=== PATIENT | male | born 1975 | race Caucasian/White ===

== ENCOUNTER 2017-03-07 04:21 | Inpatient (IN) | payer SELFPAY ==
[~2017-03-07] VITALS: Ht 177.8 cm; Wt 117.6 kg
[~2017-03-07 04:21] MED LIST: HYDR-3240 PO; LISI-167 PO; METO25TA35 PO
[2017-03-07] MEDS ORDERED: LABETALOL 5MG/ML, 20ML ONE (04:37)
[2017-03-07] MEDS: LABETALOL 5MG/ML, 20ML IVPush PRN ×3 (04:44→05:30)
[2017-03-07] MEDS ORDERED: ONDANSETRON 2MG/ML, 2ML ONE ×2 (05:11→08:13)
[2017-03-07] MEDS ORDERED: SODIUM CHLORIDE 0.9% 1,000 ML IV ONE (05:18)
[2017-03-07] MEDS ORDERED: niCARDipine 50 MG in DEXTROSE 5% 500 ML IV PRN ×2 (05:18→05:26)
[2017-03-07] MEDS ORDERED: AMLO10TA2 PO (05:19)
[2017-03-07] MEDS ORDERED: HYDR25TA6 PO (05:19)
[2017-03-07] MEDS ORDERED: NICARDIPINE IV PRN (05:26)
[2017-03-07] MEDS ORDERED: DEXTROSE 5% IV PRN (05:26)
[2017-03-07 05:45] LABS: BLOOD UREA NITROGEN 18 mg/dL (7-18)
[2017-03-07 05:56] LABS: ASPARTATE AMINO TRANSFERASE 40 U/L (15-37)
[2017-03-07] MEDS ORDERED: ONDANSETRON 2MG/ML, 2ML IVPush ONE ×2 (06:00→08:30)
[2017-03-07 06:19] LABS: IS PT STATUS REG ER OR PRE ER? YES
[2017-03-07] MEDS ORDERED: OMNIPAQUE 350 MG/ML, 100ML BOTTLE ONE (06:28)
[2017-03-07 06:36] LABS: DAU SCREEN DISCLAIMER
[2017-03-07] MEDS: SODIUM CHLORIDE 0.9% 1,000 ML IV SCH ×2 (10:13→19:29)
[2017-03-07] MEDS ORDERED: POLYETHYLENE GLYCOL 17 GM PACKET PO PRN (10:30)
[2017-03-07] MEDS ORDERED: ONDANSETRON 2MG/ML, 2ML IVPush PRN (10:30)
[2017-03-07] MEDS ORDERED: LORazepam 2 MG/ML, 1ML IVPush PRN (10:30)
[2017-03-07] MEDS ORDERED: morphine SULFATE 10 MG/ML, 1ML IVPush PRN (10:30)
[2017-03-07 10:53] LABS: IS PT STATUS REG ER OR PRE ER? YES
[2017-03-07 11:43] LABS: HIV 1&2 ANTIBODY SCREEN Nonreactive (Nonreactive); HIV-1 p24 ANTIGEN Nonreactive (Nonreactive)
[2017-03-07] MEDS ORDERED: GADOBUTROL 10 MMOL/10 ML PFS ONE (14:30)
[2017-03-07] MEDS: HYDROCHLOROTHIAZIDE 25 MG TABLET PO SCH (15:46)
[2017-03-07] MEDS: LISINOPRIL 20 MG TABLET PO SCH ×2 (16:40→21:30)
[2017-03-07] MEDS: AMLODIPINE 5 MG TABLET PO SCH (16:42)
[2017-03-07 17:07] LABS: IS PT STATUS REG ER OR PRE ER? NO
[2017-03-07 18:36] VITALS: BP 138/74
[2017-03-07] MEDS ORDERED: DIPHENHYDRAMINE 50 MG/ML, 1ML ONE (20:42)
[2017-03-07] MEDS: FAMOTIDINE 20 MG TABLET PO SCH (21:29)
[2017-03-07 22:35] VITALS: BP 213/158
[2017-03-08 04:04] VITALS: BP 134/67
[2017-03-08 04:43] LABS: BLOOD UREA NITROGEN 16 mg/dL (7-18)
[2017-03-08 04:47] LABS: ASPARTATE AMINO TRANSFERASE 26 U/L (15-37)
[2017-03-08] MEDS: SODIUM CHLORIDE 0.9% 1,000 ML IV SCH ×2 (05:03→16:25)
[2017-03-08] MEDS: OXYcodone IR 5MG TABLET PO PRN ×2 (05:04→20:10)
[2017-03-08] MEDS: LISINOPRIL 20 MG TABLET PO SCH ×2 (09:38→20:09)
[2017-03-08] MEDS: AMLODIPINE 5 MG TABLET PO SCH (09:39)
[2017-03-08] MEDS: SENNA/DOCUSATE TABLET PO SCH (09:39)
[2017-03-08] MEDS: FAMOTIDINE 20 MG TABLET PO SCH ×2 (09:39→20:09)
[2017-03-08] MEDS: HYDROCHLOROTHIAZIDE 25 MG TABLET PO SCH (09:39)
[2017-03-08 14:07] LABS: HEPATITIS C VIRUS ANTIBODY Nonreactive (Nonreactive)
[2017-03-08] MEDS: ENALAPRILAT 1.25 MG/ML, 2ML IVPush PRN (21:57)
[2017-03-09] MEDS: hydrALAzine 20 MG/ML, 1ML IV PRN ×3 (00:09→23:32)
[2017-03-09] MEDS: OXYcodone IR 5MG TABLET PO PRN (01:11)
[2017-03-09] MEDS: ENALAPRILAT 1.25 MG/ML, 2ML IVPush PRN (01:12)
[2017-03-09] MEDS: SODIUM CHLORIDE 0.9% 1,000 ML IV SCH ×2 (01:13→11:00)
[2017-03-09 04:00] VITALS: BP 132/62
[2017-03-09 04:33] LABS: BLOOD UREA NITROGEN 18 mg/dL (7-18)
[2017-03-09 04:36] LABS: ASPARTATE AMINO TRANSFERASE 31 U/L (15-37)
[2017-03-09] MEDS: LISINOPRIL 20 MG TABLET PO SCH ×2 (07:26→23:19)
[2017-03-09] MEDS: AMLODIPINE 5 MG TABLET PO SCH (07:26)
[2017-03-09] MEDS: HYDROCHLOROTHIAZIDE 25 MG TABLET PO SCH (07:27)
[2017-03-09] MEDS: SENNA/DOCUSATE TABLET PO SCH (07:27)
[2017-03-09] MEDS: FAMOTIDINE 20 MG TABLET PO SCH ×2 (07:27→23:19)
[2017-03-09] MEDS: VERAPAMIL ER 120MG TABLET.ER PO SCH (15:29)
[2017-03-09] MEDS: ACETAMINOPHEN 325 MG TABLET PO PRN ×2 (17:11→23:47)
[2017-03-10] MEDS: ENALAPRILAT 1.25 MG/ML, 2ML IVPush PRN ×3 (00:21→05:23)
[2017-03-10] MEDS: hydrALAzine 20 MG/ML, 1ML IV PRN ×2 (02:07→03:33)
[2017-03-10 06:08] LABS: ASPARTATE AMINO TRANSFERASE 30 U/L (15-37); BLOOD UREA NITROGEN 27 mg/dL (7-18)
[2017-03-10] MEDS: AMLODIPINE 5 MG TABLET PO SCH (08:20)
[2017-03-10] MEDS: HYDROCHLOROTHIAZIDE 25 MG TABLET PO SCH (08:20)
[2017-03-10] MEDS: VERAPAMIL ER 120MG TABLET.ER PO SCH (08:20)
[2017-03-10] MEDS: FAMOTIDINE 20 MG TABLET PO SCH ×2 (08:21→22:35)
[2017-03-10] MEDS: SENNA/DOCUSATE TABLET PO SCH (08:21)
[2017-03-10] MEDS: LISINOPRIL 20 MG TABLET PO SCH ×2 (08:21→22:35)
[2017-03-10] MEDS ORDERED: VERAPAMIL ER 120MG TABLET.ER PO ONE (10:00)
[2017-03-10] MEDS ORDERED: FUROSEMIDE 20 MG/2 ML IV ONE (12:30)
[2017-03-10] MEDS: ACETAMINOPHEN 325 MG TABLET PO PRN (14:05)
[2017-03-11] MEDS: hydrALAzine 20 MG/ML, 1ML IV PRN ×2 (03:07→05:10)
[2017-03-11] MEDS: ENALAPRILAT 1.25 MG/ML, 2ML IVPush PRN (04:03)
[2017-03-11 06:12] LABS: BLOOD UREA NITROGEN 25 mg/dL (7-18)
[2017-03-11] MEDS: AMLODIPINE 5 MG TABLET PO SCH (09:18)
[2017-03-11] MEDS: HYDROCHLOROTHIAZIDE 25 MG TABLET PO SCH (09:19)
[2017-03-11] MEDS: LISINOPRIL 20 MG TABLET PO SCH ×2 (09:19→20:49)
[2017-03-11] MEDS: FAMOTIDINE 20 MG TABLET PO SCH ×2 (09:19→20:48)
[2017-03-11] MEDS: VERAPAMIL ER 240MG TABLET.ER PO SCH (09:19)
[2017-03-11] MEDS: SENNA/DOCUSATE TABLET PO SCH (09:19)
[2017-03-11] MEDS ORDERED: POTASSIUM CHLORIDE 20 MEQ TAB.ER.PRT PO ONE (10:00)
[2017-03-11] MEDS ORDERED: FUROSEMIDE 20 MG/2 ML IV ONE (10:00)
[2017-03-11] MEDS: TEMAZEPAM 15 MG CAPSULE PO PRN (20:50)
[2017-03-11] MEDS: OXYcodone IR 5MG TABLET PO PRN (20:50)
[2017-03-11 20:51] VITALS: BP 147/90
[2017-03-12 02:13] VITALS: BP 140/67
[2017-03-12 05:52] LABS: ASPARTATE AMINO TRANSFERASE 86 U/L (15-37); BLOOD UREA NITROGEN 19 mg/dL (7-18)
[2017-03-12 08:09] VITALS: BP 153/96
[2017-03-12] MEDS: HYDROCHLOROTHIAZIDE 25 MG TABLET PO SCH (08:11)
[2017-03-12] MEDS: VERAPAMIL ER 240MG TABLET.ER PO SCH (08:11)
[2017-03-12] MEDS: AMLODIPINE 5 MG TABLET PO SCH (08:11)
[2017-03-12] MEDS: SENNA/DOCUSATE TABLET PO SCH (08:11)
[2017-03-12] MEDS: LISINOPRIL 20 MG TABLET PO SCH ×2 (08:11→19:57)
[2017-03-12] MEDS: FAMOTIDINE 20 MG TABLET PO SCH ×2 (08:11→19:57)
[2017-03-12 09:30] VITALS: BP 139/79
[2017-03-12 13:06] VITALS: BP 146/74
[2017-03-12 13:29] VITALS: BP 132/82
[2017-03-12] MEDS: OXYcodone IR 5MG TABLET PO PRN (20:02)
[2017-03-12] MEDS: TEMAZEPAM 15 MG CAPSULE PO PRN (20:02)
[2017-03-13] MEDS: hydrALAzine 20 MG/ML, 1ML IV PRN ×2 (01:23→14:30)
[2017-03-13] MEDS: OXYcodone IR 5MG TABLET PO PRN ×2 (01:23→21:03)
[2017-03-13 03:43] VITALS: BP 121/74
[2017-03-13 05:39] LABS: BLOOD UREA NITROGEN 19 mg/dL (7-18)
[2017-03-13 05:45] LABS: ASPARTATE AMINO TRANSFERASE 96 U/L (15-37)
[2017-03-13 06:54] VITALS: BP 162/94
[2017-03-13 07:35] VITALS: BP 148/85
[2017-03-13] MEDS: VERAPAMIL ER 180MG TABLET.ER PO SCH (08:41)
[2017-03-13] MEDS: HYDROCHLOROTHIAZIDE 25 MG TABLET PO SCH (08:41)
[2017-03-13] MEDS: FAMOTIDINE 20 MG TABLET PO SCH ×2 (08:42→21:03)
[2017-03-13] MEDS: SENNA/DOCUSATE TABLET PO SCH (08:46)
[2017-03-13] MEDS: LISINOPRIL 20 MG TABLET PO SCH ×2 (08:46→21:03)
[2017-03-13] MEDS: AMLODIPINE 5 MG TABLET PO SCH (08:46)
[2017-03-13 13:00] VITALS: BP 118/77
[2017-03-13 13:28] VITALS: BP 149/74
[2017-03-13] MEDS: TEMAZEPAM 15 MG CAPSULE PO PRN (21:03)
[2017-03-13 21:04] VITALS: BP 136/83
[2017-03-14 01:52] VITALS: BP 132/82
[2017-03-14 08:25] VITALS: BP 123/83
[2017-03-14] MEDS: AMLODIPINE 5 MG TABLET PO SCH (09:06)
[2017-03-14] MEDS: FAMOTIDINE 20 MG TABLET PO SCH ×2 (09:06→21:13)
[2017-03-14] MEDS: SENNA/DOCUSATE TABLET PO SCH (09:06)
[2017-03-14] MEDS: VERAPAMIL ER 180MG TABLET.ER PO SCH (09:07)
[2017-03-14] MEDS: LISINOPRIL 20 MG TABLET PO SCH ×2 (09:07→21:13)
[2017-03-14] MEDS: HYDROCHLOROTHIAZIDE 25 MG TABLET PO SCH (09:07)
[2017-03-14 16:42] VITALS: BP 101/66
[2017-03-14] MEDS: OXYcodone IR 5MG TABLET PO PRN (19:01)
[2017-03-14 21:05] VITALS: BP 98/64
[2017-03-15] MEDS: OXYcodone IR 5MG TABLET PO PRN ×2 (00:15→22:36)
[2017-03-15 02:44] VITALS: BP 127/73
[2017-03-15 06:26] LABS: ASPARTATE AMINO TRANSFERASE 55 U/L (15-37); BLOOD UREA NITROGEN 25 mg/dL (7-18)
[2017-03-15 07:44] VITALS: BP 135/73
[2017-03-15] MEDS: FAMOTIDINE 20 MG TABLET PO SCH ×2 (07:46→22:36)
[2017-03-15] MEDS: SENNA/DOCUSATE TABLET PO SCH (07:46)
[2017-03-15] MEDS: HYDROCHLOROTHIAZIDE 25 MG TABLET PO SCH (07:46)
[2017-03-15] MEDS: VERAPAMIL ER 180MG TABLET.ER PO SCH (07:47)
[2017-03-15] MEDS: LISINOPRIL 20 MG TABLET PO SCH ×2 (07:47→22:36)
[2017-03-15] MEDS: AMLODIPINE 5 MG TABLET PO SCH (07:47)
[2017-03-15] MEDS ORDERED: REGADENOSON 0.4 MG/5 ML SYRINGE ONE (08:15)
[2017-03-15 14:04] VITALS: BP 133/85
[2017-03-15] MEDS: METOPROLOL TARTRATE 25 MG TABLET PO SCH (17:34)
[2017-03-15 17:35] VITALS: BP 121/81
[2017-03-15 22:00] VITALS: BP 133/85
[2017-03-16 03:00] VITALS: BP 123/85
[2017-03-16 06:01] VITALS: BP 134/94
[2017-03-16] MEDS: METOPROLOL TARTRATE 25 MG TABLET PO SCH (06:02)
[2017-03-16 08:02] VITALS: BP 101/66
[2017-03-16] MEDS: SENNA/DOCUSATE TABLET PO SCH (09:00)
[2017-03-16] MEDS ORDERED: VERAPAMIL ER 180MG TABLET.ER PO SCH (09:00)
[2017-03-16] MEDS: OXYcodone IR 5MG TABLET PO PRN (09:21)
[2017-03-16] MEDS: LISINOPRIL 20 MG TABLET PO SCH (09:22)
[2017-03-16] MEDS: AMLODIPINE 5 MG TABLET PO SCH (09:22)
[2017-03-16] MEDS: HYDROCHLOROTHIAZIDE 25 MG TABLET PO SCH (09:22)
[2017-03-16] MEDS: FAMOTIDINE 20 MG TABLET PO SCH (09:22)
[2017-03-16] MEDS ORDERED: LISI-170 PO (12:46)
[2017-03-16] MEDS ORDERED: METO50TA82 PO (12:46)
[2017-03-16] MEDS ORDERED: METOPROLOL TARTRATE 50 MG TABLET PO SCH (18:00)
== END 2017-03-16 14:53 | disposition home or self-care (01) | DRG 65 ==
LOC: ED 06:21 → EDIP 06:22 → ED 06:37 → CCU 12:43 → 5SO 03-12 02:17 → DCLOUNGE 03-16 14:35
PROVIDERS: ADMIT Internal Medicine; ATTEND Internal Medicine
DX: I61.4 Nontraumatic intracerebral hemorrhage in cerebellum (principal); E87.1 Hypo-osmolality and hyponatremia; I10 Essential (primary) hypertension; F15.90 Other stimulant use, unspecified, uncomplicated; I51.9 Heart disease, unspecified; R73.9 Hyperglycemia, unspecified; G35 Multiple sclerosis; D72.829 Elevated white blood cell count, unspecified; R27.0 Ataxia, unspecified; Z82.49 Family history of ischemic heart disease and other diseases of the circulatory system; Z87.891 Personal history of nicotine dependence; Z79.899 Other long term (current) drug therapy; Z71.51 Drug abuse counseling and surveillance of drug abuser
CPT/HCPCS: 36415; 70450; 70496; 70553; 71010; 78452; 80048; 80053; 80061; 80074; 80307; 81001; 83735; 84443; 84484; 85025; 85610; 85730; 86703; 87081; 87086; 87899; 93005; 93017; 93306; 96365; 96366; 96375; 96376; A9585; J2405; J2785; Q9967; A9502; C9898; G0435; J0360; J1940; J2270; J7030; J7040; J7050; J7060

== ENCOUNTER 2018-12-14 21:24 | Emergency (ER) | payer MEDICAID, OTHER ==
[~2018-12-14] VITALS: Ht 175.3 cm; Wt 115.9 kg
[~2018-12-14 21:24] MED LIST changes: +AMLO10TA8 PO; +HYDR25TA6 PO; +LISI-170 PO; +METO50TA82 PO
[2018-12-14 21:26] VITALS: BP 176/128
--- NOTE | 2018-12-14 21:38 | NUR ---
PT RAN OUT OF MEDS FOR BP TODAY. WOULD LIKE MED REFILL. MD GAN TO TRIAGE. PT DENIES CP, SOB, HARGROVE AND ANY NEURO SYMPTOMS. VSS. ELEVATED BP BUT HAS HX OF ELEVATION.
--- NOTE | 2018-12-14 21:58 | NUR ---
Patient/Caregiver given discharge instructions and they have confirmed that they understand the instructions. Patient ambulatory with steady gait.
== END 2018-12-14 22:00 | disposition home or self-care (01) ==
LOC: ED 21:54
DX: I10 Essential (primary) hypertension (principal); Z76.0 Encounter for issue of repeat prescription; Z87.891 Personal history of nicotine dependence
CPT/HCPCS: 93005; 99283

== ENCOUNTER 2020-09-02 19:02 | Emergency (ER) | payer BC, OTHER ==
[~2020-09-02] VITALS: Ht 177.8 cm; Wt 118.3 kg
[~2020-09-02 19:02] MED LIST changes: +AMLO-211 PO; -AMLO10TA8 PO
[2020-09-02 19:42] LABS: BASOPHILS % (AUTO) 0 % (0-1); EOSINOPHILS % (AUTO) 2 % (1-7); LYMPHOCYTES % (AUTO) 28 % (22-44); MEAN CORPUSCULAR HEMOGLOBIN 30.6 pg (27.5-34.5); MEAN CORPUSCULAR HGB CONC 33.6 g/dL (33.2-36.2); MEAN PLATELET VOLUME 7.8 fL (7.4-10.4); MONOCYTES % (AUTO) 8 % (2-9); NEUTROPHILS % (AUTO) 62 % (42-75); PLATELET COUNT 286 x10^3/uL (130-400); RED BLOOD COUNT 5.04 x10^6/uL (4.38-5.82); RED CELL DISTRIBUTION WIDTH 12.9 % (9.4-14.8)
[2020-09-02 19:47] LABS: ALANINE AMINOTRANSFERASE 24 U/L (12-78); ALBUMIN 4.1 g/dL (3.4-5.0); ANION GAP 6 mmol/L (5-15); CALCIUM 9.3 mg/dL (8.5-10.1); CHLORIDE 107 mmol/L (98-107)
[2020-09-02 19:51] LABS: ALKALINE PHOSPHATASE 87 U/L (45-117); BILIRUBIN,TOTAL 0.3 mg/dL (0.2-1.0); MD NO; TOTAL PROTEIN 7.8 g/dL (6.4-8.2); TROPONIN I 0.034 ng/mL (0.000-0.045)
--- NOTE | 2020-09-02 21:04 | NUR ---
KAI WHAKARURUHAU: PT. TO ROOM FROM LOBBY AT THIS TIME.
--- NOTE | 2020-09-02 21:18 | NUR ---
This is a 45 yo male coming in with complaitns of "i have high blood pressure and i'm light-headed and aliya dizzy. My blood pressure spiked a couple days ago, I can feel my head pounding." Patient also c/o muscle aches/fatigue for the past two days. Patient appears to be very warm and slightly diaphoretic, repeat oral temp 99.0. All monitoring in place, tech completed EKG, PIV placed. NSR on media monitor, VSS, NADN. Call light in reach
--- NOTE | 2020-09-02 21:49 | NUR ---
PT RESTING IN [facility], NO NEEDS AT THIS TIME.
[2020-09-02 22:07] VITALS: BP 136/92
== END 2020-09-02 22:23 | disposition home or self-care (01) ==
LOC: ED 22:00
DX: I10 Essential (primary) hypertension (principal); R07.89 Other chest pain; Z87.891 Personal history of nicotine dependence
CPT/HCPCS: 36415; 71045; 80053; 84484; 85025; 93005; 99285